=== PATIENT | female | born 2005 ===

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

== ENCOUNTER 2023-02-15 20:01 | Emergency (ER) | payer OTHER, SELFPAY ==
--- NOTE | 2023-02-15 20:09 | ED.GENADULT ---
HPI - General Adult General Chief complaint: Psychiatric Symptoms Stated complaint: si Time Seen by Provider: 02/15/23 20:08 Source: patient and EMS Mode of arrival: EMS Limitations: no limitations History of Present Illness HPI narrative: Patient is a 17 year old individual with a history of MDD, PTSD, and BPD presenting to the emergency department today with suicidal ideation. Patient states that he took 800mg of Seroquel and immediately called 911 because he is suicidal. Patient denies any dizziness, lightheadedness, abdominal pain, nausea, vomiting, fever, chills, blurry vision, double vision, loss of vision, chest pain, difficulty breathing, shortness of breath, back pain, night sweats, pain with urination, increased urinary frequency, increased urinary urgency, blood in his urine or stool, syncope or a near syncopal episode, recent trauma or falls, bowel incontinence, bladder incontinence, bowel retention, bladder retention, or any other complaints at this time. Relieving factors: none Exacerbating factors: none Associated symptoms: denies other symptoms Treatments prior to arrival: none Related Data Home Medications Medication Instructions Recorded Confirmed doxycycline monohydrate 100 mg 1 cap PO BID 01/21/22 01/21/22 capsule escitalopram oxalate 20 mg tablet 1 tab PO DAILY 01/21/22 01/21/22 hydroxyzine HCl 25 mg tablet 25 mg PO DAILY PRN Anxiety 01/21/22 01/21/22 lithium carbonate 300 mg capsule 1 cap PO BID 01/21/22 01/21/22 quetiapine 50 mg tablet 1 tab PO BEDTIME 01/21/22 01/21/22 testosterone cypionate 200 mg/mL 0.35 ml subcut DIRECTED 01/21/22 01/21/22 intramuscular oil varenicline 1 mg tablet (Chantix) 1 mg PO BID 01/21/22 01/21/22 Allergies Allergy/AdvReac Type Severity Reaction Status Date / Time No Known Allergies Allergy Verified 02/15/23 20:31 Review of Systems Constitutional: Constitutional: Reports no additional constitutional complaints, Denies chills, Denies fever(s) and Denies night sweats Eyes: Eyes: Reports no additional eye complaints, Denies blurry vision, Denies change in vision, Denies diplopia, Denies eye discharge, Denies loss of vision and Denies eye pain ENT: Denies dizziness Cardiovascular: Cardiovascular: Reports no additional cardiovascular complaints, Denies chest pain, Denies lightheadedness, Denies Loss of Consciousness and Denies dyspnea Respiratory: Respiratory: Reports no additional respiratory complaints and Denies dyspnea Gastrointestinal: Gastrointestinal: Reports no additional gastrointestinal complaints, Denies abdominal pain, Denies melena, Denies hematochezia, Denies change in bowel habits and Denies change in stool character Genitourinary: Genitourinary: Denies hematuria, Denies urinary frequency, Denies dysuria, Denies urinary incontinence, Denies urinary hesitancy and Denies urinary urgency Musculoskeletal: Musculoskeletal: Reports no additional musculoskeletal complaints, Denies numbness and Denies tingling Neurologic: Denies dizziness, Denies loss of vision, Denies numbness and Denies tingling Psychiatric: Psychiatric: Denies homicidal ideation and Reports suicidal ideation Endocrine: Endocrine: Reports no additional endocrine complaints Hematologic/Lymphatic: Hematologic/Lymphatic: Reports no additional hematologic/lymphatic complaints Allergic/Immunologic: Allergic/Immunologic: Reports no additional allergic/immunologic complaints PMFSH Past Medical History Attestation statement: The following information was validated with the patient. Source: old records reviewed and nursing notes reviewed Onset Date is defined in the Problem List Problems that require an onset date and time if occurred within 24 hrs of arrival to the ED Aortic Dissection and Rupture; Neurologic impairment; Cardiopulmonary Arrest; Endotracheal Intubation; Insertion or Replacement of Mechanical Circulatory Assist Device Medical History Hpinh-Trewzwrti-Xiurd syndrome History of spinal fracture Social History Social History Household Members: Other Household Members Other:: Group living environment Patient Tobacco Use Status: Former Tobacco user Tobacco use type: Cigarette Smoked in Last 30 Days: No Use of substances other than those prescribed or required for medical reasons: No Advance Directives: No Advance Directives Information Provided: No Physical Exam ED Vital Signs: Vital Signs - 24 hr 02/15/23 20:29 02/15/23 23:07 Temperature 96.8 F Pulse Rate 79 92 Respiratory Rate 16 16 Blood Pressure 103/69 105/57 Pulse Oximetry 96 97 Oxygen Delivery Method Room Air Room Air BMI result Body Mass Index 19.7 Const General: cooperative, no acute distress, alert and awake Nutritional Appearance: well nourished Orientation/consciousness: patient oriented x3 Limitations: no limitations HENMT Head: Yes normal to inspection and Yes atraumatic Ears: hearing grossly normal bilaterally and external ears normal General nose exam: Normal external nose present, no nasal discharge noted and no epistaxis Face and sinus: Yes normal facial exam, No abrasion and No laceration Mouth: Normal oral and palatal mucosa present, no drooling and no muffled voice Eyes General: appearance normal, both eyes and all related structures Periorbital: periorbital findings normal Eyelids: Yes eyelids normal Conjunctivae: conjunctivae normal Pupils: Equal, round and reactive pupils present EOM: EOMs intact bilaterally Neck Neck: Yes normal visual inspection, Yes full ROM and Yes no lymphadenopathy Chest Chest palpation & inspection: normal inspection of the chest Resp Effort & Inspection: normal respiratory effort and able to speak in complete sentences GI Inspection: Yes normal to inspection Neuro General: patient oriented x3 and moves all extremities Cranial nerves: Yes Equal, round and reactive pupils present Cognition (Neuro): normal cognition Motor exam (neuro): 5/5 motor strength present throughout Sensory Exam: Normal double simultaneous stimulation for sensation Coordination: [id number] test normal Extrem General: Yes normal to inspection, Yes full ROM and Yes capillary refill normal Psych Appearance: grossly normal Mental Status: mental status grossly normal Affect: Sad affect present Attitude: cooperative Thought content: Suicidality present Medical Decision Making Medical Decision Making [facility] Narrative: Patient is a 17 year old individual with a history of BPD, PTSD, and MDD presenting to the emergency department today with suicidal ideation. Patient's physical exam was unremarkable. Patient's blood work was unremarkable. Patient's EKG was unremarkable. I explained my physical exam findings as well as all test results to the patient. I answered all questions asked by the patient. Patient is currently awaiting CARE team evaluation. Differential Diagnosis Differential Diagnoses: The differential diagnosis associated with the presentation includes Suicidal ideation Suicide attempt Admission/Observation Consideration of admission/observation: Escalation of care including admission/observation considered Patient's disposition will be determined after CARE team evaluation. Lab Data [facility] Lab Attestation statement: I reviewed the patient's lab results. My interpretation of these results are in the [facility] Rationale portion of this note. 02/15/23 21:11 02/15/23 21:11 Labs: Lab Results 02/15/23 Range/Units 21:11 WBC 6.7 X10*3/uL RBC 3.87 X10*6/uL Hgb 12.4 g/dl Hct 34.6 % MCV 89.4 fL MCH 32.0 pg MCHC 35.8 g/dl RDW 11.4 (11.0-16.0) % Plt Count 185 X10*3/uL MPV 9.6 (9.4-12.4) fL Immature Gran % (Auto) 0.3 (0.0-0.4) % Neut % (Auto) 75.6 % Lymph % (Auto) 15.3 % [place] % (Auto) 7.9 % Eos % (Auto) 0.6 % Baso % (Auto) 0.3 % Lymph # (Auto) 1.0 X10*3/uL [place] # (Auto) 0.5 X10*3/uL Eos # (Auto) 0.0 X10*3/uL Baso # (Auto) 0.0 X10*3/uL Abs Immat Gran (auto) 0.02 (0.00-0.03) X10*3/uL Absolute Neuts (auto) 5.0 x10*3/uL Absolute Nucleated RBC 0.000 (0.0-0.012) X10*3/uL Nucleated RBC % (auto) 0.0 (0.0-0.2) /100WBC Sodium 143 mmol/L Potassium 3.8 mmol/L Chloride 113 mmol/L Carbon Dioxide 21 mmol/L Anion Gap 13 BUN 10 mg/dL Creatinine 0.70 mg/dL Estim Creat Clear Calc TNP Estimated GFR > 60 Random Glucose 103 mg/dL Calcium 8.2 mg/dL Total Bilirubin 0.3 mg/dL AST 13 U/L ALT 6 U/L Alkaline Phosphatase 49 U/L Total Protein 5.6 g/dL Albumin 3.6 g/dL Salicylates < 5.0 mg/dL [place] < 0.10 mmol/L Ethyl Alcohol < 10 mg/dL COVID-19 ([facility]) Negative COVID-19 Clin Com See Note Independent Interpretation I performed an independent interpretation of an: EKG Interpretation: Vent. Rate: 078 BPM Atrial Rate: 078 BPM P-R Int: 096 ms QRS Dur: 092 ms QT Int: 372 ms P-R-T Axes: 011 054 052 degrees QTc Int: 424 ms Sinus rhythm with short HI Otherwise normal ECG No previous ECGs available DD/ 19 Independent Historian Clinical information obtained from an independent historian. History obtained from or confirmed by: EMS (EMS provided additional history and confirmed the history provided by the patient.) Critical Care Time Critical Care Time Critical Care Time: Yes Total Critical Care Time: 45 Attestation: I spent 45 minutes of Critical Care Time with this patient. This does not include time spent on separately reported billable procedures. Discharge Plan Discharge Clinical Impression: Suicidal ideation Patient Disposition: Still a Patient Prescriptions: No Action lithium carbonate 300 mg capsule 1 cap PO BID doxycycline monohydrate 100 mg capsule 1 cap PO BID hydroxyzine HCl 25 mg Tablet 25 mg PO DAILY PRN (Reason: Anxiety) testosterone cypionate 200 mg/mL oil 0.35 ml subcut DIRECTED Rx Instructions: Uses once a week on escitalopram oxalate 20 mg tablet 1 tab PO DAILY quetiapine 50 mg tablet 1 tab PO BEDTIME varenicline [Chantix] 1 mg Tablet 1 mg PO BID Interventions: Jack-Suicide Risk Severity Scale Last Done: 02/15/23 20:33
[2023-02-15 20:29] VITALS: BP 103/69; BP 107/71; PULSE 76; PULSE 79; RESP 16; O2SAT 96; BMI 19.7
--- NOTE | 2023-02-15 20:34 | PC.NURSE ---
PT CHANGED OVER INTO HOSP ATTIRE, BELONGING IN POD LOCKER # 3.
--- NOTE | 2023-02-15 21:02 | ECG_ITS ---
Test Reason : overdose Blood Pressure : / mmHG Vent. Rate : 078 BPM Atrial Rate : 078 BPM P-R Int : 096 ms QRS Dur : 092 ms QT Int : 372 ms P-R-T Axes : 011 054 052 degrees QTc Int : 424 ms Sinus rhythm with short [place] Otherwise normal ECG No previous ECGs available Referred By: Carlie Bustos Electronically Signed By:Robe Mendoza
[2023-02-15 21:16] LABS: MANUAL DIFF FLAG NO
[2023-02-15 21:20] LABS: Basophils Percent Auto 0.3 %; Eosinophils Percent Auto 0.6 %; Hematocrit 34.6 %; Hemoglobin 12.4 g/dl; Imm Gran Abs Auto 0.02 X10*3/uL (0.00-0.03); Imm Gran Pct Auto 0.3 % (0.0-0.4); Lymphocytes Percent Auto 15.3 %; Mean Corpuscular HGB Conc 35.8 g/dl; Mean Corpuscular Volume 89.4 fL; Mean Platelet Volume 9.6 fL (9.4-12.4); Monocytes Absolute Auto 0.5 X10*3/uL; Monocytes Percent Auto 7.9 %; Neutrophils Percent Auto 75.6 %; Platelet Count 185 X10*3/uL; Red Blood Count 3.87 X10*6/uL; Red Cell Distribution Width 11.4 % (11.0-16.0); White Blood Count 6.7 X10*3/uL
[2023-02-15 21:29] LABS: Lithium < 0.10 mmol/L
[2023-02-15 21:32] LABS: COVID-19 Test Negative; IDNOW Serial# 08D9AD1C
[2023-02-15 21:40] LABS: Alanine Aminotransferase 6 U/L; Albumin Level 3.6 g/dL; Alkaline Phosphatase 49 U/L; Anion Gap 13; Aspartate Amino Transferase 13 U/L; Bilirubin Total 0.3 mg/dL; Blood Urea Nitrogen 10 mg/dL; Calcium 8.2 mg/dL; Carbon Dioxide 21 mmol/L; Chloride 113 mmol/L; Estimated Glomerular Filt Rate > 60; Ethanol < 10 mg/dL; Glucose Random 103 mg/dL; Potassium 3.8 mmol/L; Salicylate < 5.0 mg/dL; Sodium 143 mmol/L; Total Protein 5.6 g/dL
[2023-02-15 23:07] VITALS: BP 105/57; PULSE 92; RESP 16; TEMP 36; O2SAT 97
--- NOTE | 2023-02-15 23:15 | PC.NURSE ---
ASSUMED CARE OF PT AT THIS TIME.
--- NOTE | 2023-02-16 01:01 | PC.NURSE ---
PT ARROUSABLE TO NAME. REPORTS UNABLE TO PROVIDE URINE SAMPLE AT THIS TIME. PT RESTING COMFORTABLY. NAD. 1:1 SITTER AT BEDSIDE. PT CHANGED OVER BY PREVIOUS SHIFT; BELONGINGS SECURED.
[2023-02-16 03:10] LABS: Appearance Urine Clear; Color Urine Yellow; Glucose Urine UA Negative (Negative); Leukocyte Esterase Urine Negative (Negative); Nitrite Urine Negative (Negative); Urine Blood Negative (Negative); Urine Ketones Negative (Negative); Urine Protein Negative (Neg-Trace)
[2023-02-16 03:11] LABS: UPreg QC Valid YES; Urine Pregnancy NEGATIVE (NEGATIVE)
[2023-02-16 03:15] LABS: Amphetamine Screen Urine Not Detected; Barbiturates, Urine Not Detected; Benzodiazepines Screen Urine Not Detected; Cannabinoid Screen Urine POSITIVE; Cocaine Screen Urine Not Detected; Fentanyl, urine Not Detected; Opiate Screen Urine Not Detected; Phencyclidine Screen Urine Not Detected
[2023-02-16 05:28] VITALS: BP 100/60; PULSE 88; RESP 16; TEMP 36.6; O2SAT 97
--- NOTE | 2023-02-16 11:06 | PC.NURSE ---
Addendum entered by Valorie Narayanan RN 02/16/23 11:51: pt denies SI Original Note: late entry: assumed care of pt at 0700. pt a&o x4, pleasant, calm, and cooperative. pt resting quietly on stretcher in no apparent distress. met with care team. 1:1 sitter at bedside. 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 care team called and aware. rr even/unlabored. plan of care ongoing.
[2023-02-16 11:28] LABS: Acetaminophen LAB < 5 mcg/mL
[2023-02-16 11:31] VITALS: BP 113/70; PULSE 78; RESP 16; TEMP 36.5; O2SAT 100
== END 2023-02-16 11:52 | disposition home or self-care (01) ==
PROVIDERS: Physician Assistant Medical; Emergency Provider Emergency Medicine; PCP Pediatrics
DX: R45.851 Suicidal ideations (principal); F60.3 Borderline personality disorder; F43.10 Post-traumatic stress disorder, unspecified; F33.2 Major depressive disorder, recurrent severe without psychotic features; Z87.891 Personal history of nicotine dependence; Z79.899 Other long term (current) drug therapy; Z11.52 Encounter for screening for COVID-19
CPT/HCPCS: 80053; 80143; 80178; 80179; 80307; 81003; 81025; 85025; 87635; 93005; 99285; S9485

== ENCOUNTER → 2023-02-15 21:02 | Outpatient (BNV) | payer MEDICAID, SELFPAY | PROVIDERS: Emergency Provider Emergency Medicine; PCP Pediatrics; Visit Provider Internal Medicine Cardiovascular Disease | DX: R45.851 Suicidal ideations (principal) | CPT/HCPCS: 93010 ==